=== PATIENT | female | born 1940 | race Caucasian/White ===

== ENCOUNTER 2018-01-15 08:21 | Day surgery (SDC) | payer MEDICARE, OTHER ==
[~2018-01-15 08:21] MED LIST: Midazolam 1 MG/ML 2 ML SDV ONE; Propofol 200 MG/20 ML SDV ONE; fentaNYL 100 MCG/2 ML SDV ONE
[2018-01-15] MEDS ORDERED: Lactated Ringers 1,000 ML IV SCH (08:30)
[2018-01-15] MEDS ORDERED: Sodium Chloride 0.9% 10 ML Syringe FLUSH PRN (08:30)
--- NOTE | 2018-01-15 10:04 | PCM.PN ---
- General Info Date of Service: 01/15/18 - Review of Systems Systems Review Comment:: 77-year-old female here for colonoscopy. Her last colon exam was over 5 years ago. She is medically stable to proceed today. I discussed the proposed colonoscopy with the patient. Risks such as but not limited to bleeding and GI injury or discussed. Her recent history and physical is reviewed and there is no significant change noted. She agrees to proceed accepting risks. - Patient Data Vitals - Most Recent: Last Vital Signs Temp 98.5 F 01/15/18 08:57 Pulse 81 01/15/18 08:57 Resp 18 01/15/18 08:57 BP 140/68 01/15/18 08:57 Pulse Ox 99 01/15/18 08:57 Weight - Most Recent: 68.946 kg Lab Results Last 24 Hours: Laboratory Results - last 24 hr 01/15/18 Range/Units 08:54 POC Glucose 207 H (65-110) mg/dl Med Orders - Current: Current Medications Lactated Ringer's (Ringers, Lactated) 1,000 mls @ 125 mls/hr IV ASDIRECTED TONY Last Admin: 01/15/18 09:15 Dose: 125 mls/hr Sodium Chloride (Saline Flush) 10 ml FLUSH ASDIRECTED PRN PRN Reason: Keep Vein Open Discontinued Medications Fentanyl (Sublimaze) Confirm Administered Dose 100 mcg .ROUTE .STK-MED ONE Stop: 01/15/18 08:04 Midazolam HCl (Versed 1 Mg/Ml) Confirm Administered Dose 2 mg .ROUTE .STK-MED ONE Stop: 01/15/18 08:04 Propofol (Diprivan 20 Ml) Confirm Administered Dose 400 mg .ROUTE .STK-MED ONE Stop: 01/15/18 08:04 - Problem List Review Problem List Initiated/Reviewed/Updated: Yes - My Orders Last 24 Hours: My Active Orders 01/15/18 08:30 Patient Status [ADT] Routine Blood Glucose Check, Bedside [RC] ONETIME Peripheral IV Care [RC] . DIRECTED Verify Patient Consent Obtain [RC] ASDIRECTED Lactated Ringers [Ringers, Lactated] 1,000 ml IV ASDIRECTED Sodium Chloride 0.9% [Saline Flush] 10 ml FLUSH ASDIRECTED PRN Peripheral IV Insertion Adult [OM.PC] Routine 01/15/18 Breakfast Nothing Per Oral Diet [DIET] - Assessment Assessment:: colon cancer screening - Plan Plan:: colonoscopy
[2018-01-15] MEDS ORDERED: fentaNYL 100 MCG/2 ML SDV ONE (10:06)
[2018-01-15] MEDS ORDERED: Midazolam 1 MG/ML 2 ML SDV ONE (10:06)
[2018-01-15] MEDS ORDERED: Propofol 200 MG/20 ML SDV ONE (10:06)
--- NOTE | 2018-01-15 10:45 | PCM.OPNOTE ---
- General Post-Op/Procedure Note Date of Surgery/Procedure: 01/15/18 Operative Procedure(s): Colonoscopy with polypectomy Findings: Moderate Descending Colon Diverticulosis Hepatic Flexure polyp Moderate to large external hemorrhoids Pre Op Diagnosis: Colon Cancer Screening Post-Op Diagnosis: Colon Polyp. Diverticulosis. Hemorrhoids Anesthesia Technique: MAC Primary Surgeon: Nigel Rodgers Pathology: Hepatic Flexure Polyp Output, Urine Amount: 0 EBL in mLs: 0 Complications: None Condition: Good Free Text/Narrative:: Intake & Output 01/14/18 01/15/18 01/15/18 22:59 06:59 14:59 Intake Total 900 Balance 900
--- NOTE | 2018-01-16 09:18 | OR ---
Date of Procedure: 01/15/2018 PREOPERATIVE DIAGNOSIS: Colon cancer screening. POSTOPERATIVE DIAGNOSES: 1. Descending colon diverticulosis. 2. Hepatic flexure polyp. 3. External hemorrhoids. OPERATIONS PERFORMED: Colonoscopy with polypectomy. INDICATIONS FOR SURGERY: This 77-year-old female is referred for a colonoscopy. Her last colon exam was over 5 years ago. FINDINGS: The patient was noted to have a polyp at the hepatic flexure. This was 6 mm in size and sessile in configuration. She also has a moderate degree of diverticulosis in the descending colon. This does not appear to be acutely inflamed, otherwise complicated. She also has moderate to large size external hemorrhoids. DESCRIPTION OF PROCEDURE: The patient was taken to the operating room. She was given intravenous sedation, and with her in the left lateral decubitus position, digital rectal exam was performed showing no rectal masses. The Olympus colonoscope was inserted into the rectum. Retroflexed examination of the rectal canal was performed. The scope was then carefully advanced under direct visualization through the entire length of the colon until the cecum was reached. During insertion of the scope, the above-described polyp was identified. This was removed with a cautery snare and retrieved into a polyp trap. Once the cecum had been reached, careful examination identified the ileocecal valve and appendiceal orifice. The light was also noted to transilluminate the abdominal wall in the right lower quadrant. The ileocecal valve was cannulated and the terminal ileum also examined and appeared normal. The scope was then slowly withdrawn sequentially re-examining the colonic segments until the entire colon and rectum had been fully examined. The scope was removed and the patient was taken from the operating room in satisfactory condition. ESTIMATED BLOOD LOSS: Zero. COMPLICATIONS: None. PROGNOSIS: Good. SHEILA Rodgers MD /[id number]
== END 2018-01-15 11:53 | disposition home or self-care (01) ==
LOC: LL.SDS 08:21
PROVIDERS: ATTEND Surgery
DX: Z12.11 Encounter for screening for malignant neoplasm of colon (principal); D12.3 Benign neoplasm of transverse colon; K57.30 Diverticulosis of large intestine without perforation or abscess without bleeding; K64.4 Residual hemorrhoidal skin tags; E11.9 Type 2 diabetes mellitus without complications; E78.5 Hyperlipidemia, unspecified; E53.8 Deficiency of other specified B group vitamins; I10 Essential (primary) hypertension; M19.049 Primary osteoarthritis, unspecified hand; Z79.84 Long term (current) use of oral hypoglycemic drugs; Z79.899 Other long term (current) drug therapy; Z98.890 Other specified postprocedural states
CPT/HCPCS: 00812; 82962; J2250; J2704; J3010; J7120

== ENCOUNTER 2021-04-05 10:02 | Day surgery (SDC) | payer MEDICARE, OTHER ==
[~2021-04-05 10:02] MED LIST changes: -Midazolam 1 MG/ML 2 ML SDV ONE; -fentaNYL 100 MCG/2 ML SDV ONE
[2021-04-05] MEDS ORDERED: Sodium Chloride 0.9% 10 ML Syringe FLUSH PRN (10:30)
[2021-04-05] MEDS ORDERED: Lactated Ringers 1,000 ML IV SCH (10:30)
--- NOTE | 2021-04-05 12:05 | PCM.PN ---
- General Info Date of Service: 04/05/21 - Review of Systems Systems Review Comment:: 80-year-old female with history of colon polyps here for surveillance colonoscopy. She denies any recent change in bowel pattern. She is medically stable to proceed today. Her recent history and physical is reviewed and no significant changes are noted. I have discussed the proposed colonoscopy with the patient. Risks and possible complications discussed. She agrees to proceed. - Patient Data Vitals - Most Recent: Last Vital Signs Temp 63 F L 04/05/21 10:57 Pulse 63 04/05/21 10:57 Resp 16 04/05/21 10:57 BP 149/70 H 04/05/21 10:57 Pulse Ox 98 04/05/21 10:57 Weight - Most Recent: 65.771 kg Lab Results Last 24 Hours: Laboratory Results - last 24 hr 04/05/21 Range/Units 10:55 POC Glucose 121 H (70-99) mg/dL Med Orders - Current: Current Medications Lactated Ringer's (Ringers, Lactated) 1,000 mls @ 125 mls/hr IV ASDIRECTED TONY Last Admin: 04/05/21 11:18 Dose: 125 mls/hr Documented by: Sodium Chloride (Sodium Chloride 0.9% 10 Ml Syringe) 10 ml FLUSH ASDIRECTED PRN PRN Reason: Keep Vein Open Discontinued Medications Propofol (Propofol 200 Mg/20 Ml Sdv) Confirm Administered Dose 200 mg .ROUTE .STK-MED ONE Stop: 04/05/21 08:13 - Patient Data Lab Results Last 24 hrs: Laboratory Results - last 24 hr 04/05/21 Range/Units 10:55 POC Glucose 121 H (70-99) mg/dL Sepsis Event Note - Focused Exam Vital Signs: Vital Signs Temp Pulse Resp BP Pulse Ox 04/05/21 10:57 63 F L 63 16 149/70 H 98 - Problem List Review Problem List Initiated/Reviewed/Updated: Yes - My Orders Last 24 Hours: My Active Orders 04/05/21 10:30 Patient Status [ADT] Routine Peripheral IV Care [RC] . DIRECTED Verify Patient Consent Obtain [RC] ASDIRECTED Lactated Ringers [Ringers, Lactated] 1,000 ml IV ASDIRECTED Sodium Chloride 0.9% [Saline Flush] 10 ml FLUSH ASDIRECTED PRN Peripheral IV Insertion Adult [OM.PC] Routine - Assessment Assessment:: History of colon polyps - Plan Plan:: Colonoscopy
[2021-04-05] MEDS ORDERED: Propofol 200 MG/20 ML SDV ONE (12:09)
--- NOTE | 2021-04-05 12:39 | PCM.OPNOTE ---
- General Post-Op/Procedure Note Date of Surgery/Procedure: 04/05/21 Operative Procedure(s): Colonoscopy Findings: Extensive left colon diverticulosis Moderate sized hemorrhoids Pre Op Diagnosis: history of colon polyps Post-Op Diagnosis: Sigmoid Diverticulosis. Hemorrhoids Anesthesia Technique: MAC Primary Surgeon: Nigel Rodgers Pathology: none EBL in mLs: 0 Complications: None Condition: Good
--- NOTE | 2021-04-05 14:27 | OR ---
Date of Procedure: 04/05/2021 PREOPERATIVE DIAGNOSIS: History of colon polyps. POSTOPERATIVE DIAGNOSIS: Sigmoid diverticulosis and hemorrhoids. OPERATIONS PERFORMED: Colonoscopy. INDICATIONS FOR SURGERY: This 80-year-old female has a known history of colon polyps and comes today for surveillance colonoscopy. FINDINGS: No polyps were seen on today's exam. The patient does have a moderate to extensive degree of diverticulosis in the sigmoid region, although this does not appear to be acutely inflamed, or otherwise, complicated. The patient also has moderate-sized external hemorrhoids. The remainder of the colon and rectum appeared normal. DESCRIPTION OF PROCEDURE: The patient was taken to the operating room. She was given intravenous sedation, and with her in the left lateral decubitus position, digital rectal exam was performed showing no rectal masses. The Olympus colonoscope was inserted into the rectum. Retroflexed examination of the rectal canal was performed. The scope was then carefully advanced under direct visualization through the entire length of the colon until cecum was reached. Cecal acquisition was confirmed by noting the normal internal cecal anatomy including the appendiceal orifice and the ileocecal valve. The light was also noted to transilluminate the abdominal wall in the right lower quadrant. After examining the cecum, the scope was slowly withdrawn sequentially re-examining the colonic segments until the entire colon and rectum had been fully examined. The scope was removed, and the patient was taken from the operating room in satisfactory condition. ESTIMATED BLOOD LOSS: Zero. COMPLICATIONS: None. PROGNOSIS: Good. SHEILA Rodgers MD /[id number]
== END 2021-04-05 13:20 | disposition home or self-care (01) ==
LOC: LL.SDS 10:02
PROVIDERS: ATTEND Surgery
DX: Z12.11 Encounter for screening for malignant neoplasm of colon (principal); K57.30 Diverticulosis of large intestine without perforation or abscess without bleeding; K64.4 Residual hemorrhoidal skin tags; E11.9 Type 2 diabetes mellitus without complications; E78.5 Hyperlipidemia, unspecified; G47.00 Insomnia, unspecified; G43.909 Migraine, unspecified, not intractable, without status migrainosus; I10 Essential (primary) hypertension; Z90.49 Acquired absence of other specified parts of digestive tract; Z98.890 Other specified postprocedural states; Z86.010 Personal history of colon polyps; Z79.899 Other long term (current) drug therapy; Z79.4 Long term (current) use of insulin; Z79.82 Long term (current) use of aspirin
CPT/HCPCS: 00812; 82947; J2704; J7120